=== PATIENT | female | born 1955 | race Caucasian/White ===

== ENCOUNTER 2017-06-18 10:50 | Inpatient (IN) | payer MEDICARE ==
[~2017-06-18] VITALS: Ht 165.1 cm; Wt 89.7 kg
[2017-06-18] VITALS (12 sets, daily range): BP systolic 101–123; BP diastolic 59–76; PULSE 83–90; RESP 9–19; O2SAT 85–97
--- NOTE | 2017-06-18 10:56 | ED.REPORT ---
HPI-General Illness Date of Service Jun 18, 2017 ED Provider: Stanislav Mishra DO Patient is a 61 year old female with a history of diabetes and hypertension who presents to the ED via EMS complaining of right sided weakness. She reports that this is not new weakness. Associated symptoms include a productive- cough with clear sputum. Upon arrival to the ED, the patient's oxygen sats were 85% on room air. Patient denies chest pain, abdominal pain or fever. According to [facility], the patient has been unable to ambulate and appears confused. Nursing Notes Stated Complaint: WEAKNESS/COUGH Chief Complaint: General Complaint Nursing Notes Reviewed: Yes Allergies: Coded Allergies: varenicline (Verified Allergy, Unknown, 06/18/17) acetaminophen (Verified Adverse Reaction, Unknown, 06/18/17) hydrocodone (Verified Adverse Reaction, Unknown, 06/18/17) Uncoded Allergies: PERTUSSIS VACCINE (Allergy, Unknown, 06/18/17) General Time Seen by MD: 10:55 Chief Complaint Weakness Hx Obtained From: Patient Arrived By: Ambulance Onset Occurred: Onset unknown Severity: Current: No pain currently Past Medical History Past Medical History Notes: full code Past Medical History hypothyroid spinal stenosis Reports: Asthma, Diabetes mellitus, Hypertension Past Surgical History back Reports: Cholecystectomy Smoking History Current Every Day Smoker, Heavy Tobacco Smoker Social History Alcohol Use: Denies alcohol use Other Social History: Lives in [facility] Ambulatory Status Cane Review of Systems Full Review of Systems Constitutional: Denies: Fever Respiratory: Reports: Prod cough, clear Cardiovascular: Denies: Chest pain GI: Denies: Abdominal pain Neurologic: Reports: Confusion, Problem walking, Weakness (right side) Complete sys rev & neg: except as marked. Physical Exam Vital Signs Vital Signs Date Time Temp Pulse Resp B/P Pulse Ox O2 Delivery O2 Flow Rate FiO2 06/18/17 13:10 14 96 35 06/18/17 11:13 86 18 101/72 96 Room Air 06/18/17 10:54 36.8 90 9 114/59 85 Initial VS: Reviewed General/Constitutional: Awake, Alert Head / Eyes: Atraumatic, Normocephalic Neck: Atraumatic, Supple, No JVD Respiratory / Chest: Atraumatic, No respiratory distress rales bilaterally hypoxic Cardiovascular: Heart rate NL, Regular rhythm, Heart sounds NL Abdomen: Atraumatic, Soft, Non-tender Skin: Atraumatic, Color NL, No rash, Warm, Dry Neurologic: Speech NL mildly confused Interpretation & Diagnostics Lab Results Interpretation Result Diagram: 06/18/17 1110 06/18/17 1142 Test 06/18/17 11:10 06/18/17 11:39 06/18/17 11:42 White Blood Count 8.8th/mm3 (3.8-10.1) Red Blood Count 4.36mil/mm3 (3.90-5.20) Hemoglobin 13.6g/dL (12.0-15.6) Hematocrit 40.8% (35.0-46.0) Mean Corpuscular Volume 93.6fL (81-100) Mean Corpuscular Hemoglobin 31.2pg (27.0-35.0) Mean Corpuscular Hemoglobin Concent 33.3% (32.0-37.0) Red Cell Distribution Width 12.4% (12.3-15.4) Platelet Count 329bil/L (150-400) Neutrophils (%) (Auto) 61.7% (40-74) Lymphocytes (%) (Auto) 28.6% (14-46) Monocytes (%) (Auto) 7.8% (4-12) Eosinophils (%) (Auto) 1.4% (0-5) Basophils (%) (Auto) 0.3% (0-3) D-Dimer 0.50mg/L FEU (<0.50) Lactic Acid Level 1.0mmol/L (0.4-2.0) Urine Color Straw (YELLOW) Urine Appearance Hazy (CLEAR,HAZY) Urine pH 5.5 (5.0-8.0) Urine Specific [place] 1.015 (1.003-1.035) Urine Protein Negativemg/dL (NEG,TRACE) Urine Glucose (UA) Negativemg/dL (NEGATIVE) Urine Ketones Negativemg/dL (NEGATIVE) Urine Occult Blood Trace (NEGATIVE) Urine Nitrite Positive (NEGATIVE) Urine Bilirubin Negative (NEGATIVE) Urine Urobilinogen Normalmg/dL (NORMAL) Urine Leukocyte Esterase Small (NEGATIVE) Urine RBC 0-2/hpf (0-2) Urine WBC 0-5/hpf (0-5) Urine Epithelial Cells Occasional/hpf (NONE-MOD) Urine Crystals None seen (NONE SEEN) Urine Bacteria Moderate/hpf (NONE-FEW) Urine Hyaline Casts None/lpf (NONE) Urine Granular Casts None seen (NONE SEEN) Urine Waxy Casts None seen (NONE SEEN) Urine Red Blood Cell Casts None seen (NONE SEEN) Urine White Blood Cell Casts None seen (NONE SEEN) Urine Mucus None seen (None Seen) Urine Trichomonas None seen (NONE SEEN) Urine Yeast None (NONE SEEN) Urinalysis Comment None Urine Culture Reflexed Indicated Sodium Level 130mEq/L (134-144) Potassium Level 5.0mEq/L (3.5-5.2) Chloride Level 87mEq/L (97-108) Carbon Dioxide Level 32mmol/L (18-29) Blood Urea Nitrogen 15mg/dL (8-27) Creatinine 0.90mg/dL (0.57-1.00) Estimat Glomerular Filtration Rate 91mL/min (>59) Glucose Level 217mg/dL (60-99) Calcium Level 9.3mg/dL (8.5-10.1) Magnesium Level 1.7mg/dL (1.6-2.6) Total Bilirubin 0.4mg/dL (0.0-1.2) Aspartate Amino Transf (AST/SGOT) 25U/L (0-50) Alanine Aminotransferase (ALT/SGPT) 17U/L (0-32) Alkaline Phosphatase 105U/L (25-165) Troponin T 0.010ug/L (0.0-0.011) Pro-B-Type Natriuretic Peptide 198.9pg/mL (0-287) Total Protein 6.8g/dL (6.4-8.4) Albumin 4.1g/dL (3.4-5.0) Procalcitonin 0.06ng/mL (0.00-0.08) Lab Results Interpretation: BLOOD GAS REPORT: pH 7.290/pCO2 77/pO2 134/cHCO3(P) 35.9/cBASE(B) 6.9 ECG Interpretation ECG Interpretation: nonspecific T abnormalities in lateral leads Time: 11:14 Interpreted by: ED physician Normal ECG Interpretation: Normal rate (85), Normal sinus rhythm X-Ray Chest Interpretation Chest Xray Interpretation: IMPRESSION: Negative chest. No acute cardiopulmonary process is suspected. Dictated by: Tim Estrella M.D. on 06/18/2017 at 11:20 Approved by: Tim Estrella M.D. on 06/18/2017 at 11:21 Re-Eval/Medical Decision Med Decision/Clinical Course Hypercapnic respiratory failure likely due to underlying asthma/suspected COPD. No evidence of infection or cardiac disease. Will be admitted. patient has required BiPAP. Time of Eval: 12:21 Re-Evaluation/Progress Note: Discussed plan for admit. patient understands and agrees to plan. All questions were addressed. Consultation : Referral / Consult Name: Paula Jackson MD Consulted With: Hospitalist Call Returned at: 13:45 Flexboard Operator: Agrees with eval, Agrees with plan, Accepts admit Counseled Regarding: Diagnosis, Lab results, Need for admission Discharge & Departure Primary Impression: Respiratory acidosis Additional Impression: Acute respiratory failure with hypoxia and hypercarbia Disposition: ADMITTED TO HOSPITAL Discharge Condition All VS Reviewed: Yes Condition: Stable Referrals: Ender Webb MD (PCP) Crit Care Except Billable Proc Time Spent: 30-74 minutes (61) Services Performed: Patient management by me, Time spent at bedside, Reviewing test results, Reviewing imaging, Discussing patient care, Documentation in record Scribe Attestation Portions of this note were transcribed by Amber Gibbs. I, Dr. Senait Hughes personally performed the history, physical exam and medical decision-making; I reviewed and confirmed the accuracy of the information in the transcribed note. Signed by: Tg Ball, 06/18/17 copies to: Ender Webb MD, Timothy S DO Jun 18, 2017 10:56 Emma Gibbs Jun 18, 2017 11:38
[2017-06-18 11:27] LABS: BASOPHILS % (AUTO) 0.3 % (0-3); EOSINOPHILS % (AUTO) 1.4 % (0-5); MONOCYTES % (AUTO) 7.8 % (4-12); Mean Corpuscular Hemoglobin 31.2 pg (27.0-35.0); Mean Corpuscular Volume 93.6 fL (81-100); NEUTROPHILS % (AUTO) 61.7 % (40-74); Platelet Count 329 bil/L (150-400)
--- NOTE | 2017-06-18 12:06 | ABG ---
DateTimeAnalyzed 11:57:00 -_ pH ____7.290 - 7.320 7.420 pCO2 ___77.1__ -mmHg 41.0 51.0 pO2 134 -mmHg 26.0 49.0 HCO3- ___35.9__ -mmol/L 22.0 26.0 ABE ____6.9__ -mmol/L -2.0 2.0 tHb ___13.1__ -g/dL 12.0 18.0 O2Hb ___94.9__ -% COHb ____2.8__ -% 1.5 MetHb ____1.0__ -% 0.4 1.5 sO2 ___98.6__ -% 40.0 70.0 FIO2 ___30.0__ -% Drawn By LAB - Date/Time Notified____ 12:06:00 -_ Oxygen Device 1 __CANNULA - Notified By rs - Notified Whom OKELLEY, MAYTE -____ B 762 -mmHg tO2 ___17.7__ -Vol%
--- NOTE | 2017-06-18 12:22 | DRSVH ---
PROCEDURE: X-RAY CHEST ONE VIEW, PORTABLE ([id number]) INDICATIONS: cough, hypoxia TECHNIQUE: One view of the chest was acquired. COMPARISON: None. FINDINGS: Surgical changes and devices: Postoperative changes of the cervical spine are noted. The lowest left -sided pedicle screw is fractured. Lungs and pleura: No pleural effusions or pneumothorax. Lungs are clear. Mediastinum: Mediastinal contours appear normal. Heart size is normal. Bones and chest wall: No suspicious bony lesions. Overlying soft tissues appear unremarkable. IMPRESSION: Negative chest. No acute cardiopulmonary process is suspected. Dictated by: Tim Estrella M.D. on 06/18/2017 at 11:20 Approved by: Tim Estrella M.D. on 06/18/2017 at 11:21
[2017-06-18 12:36] LABS: TROPONIN T 0.01 ug/L (0.0-0.011)
[2017-06-18 12:47] LABS: Magnesium 1.7 mg/dL (1.6-2.6)
[2017-06-18 12:55] LABS: APPEARANCE,URINE HAZY (CLEAR,HAZY); COLOR,URINE STRAW (YELLOW); OCCULT BLOOD,URINE TRACE (NEGATIVE); PH,URINE 5.5 (5.0-8.0)
[2017-06-18 12:56] LABS: UROBILINOGEN,URINE NORMAL (NORMAL)
--- NOTE | 2017-06-18 13:49 | ABG ---
DateTimeAnalyzed 13:40:05 -_ pH ____7.315 - 7.350 7.450 pCO2 ___76.1__ -mmHg 35.0 45.0 pO2 ___81.3__ -mmHg 80.0 100 HCO3- ___38.8__ -mmol/L 22.0 26.0 ABE ___11.0__ -mmol/L -2.0 2.0 tHb ___13.1__ -g/dL 12.0 18.0 O2Hb ___94.1__ -% COHb ____2.8__ -% 1.5 MetHb ____0.0__ -% 0.4 1.5 sO2 ___96.6__ -% 95.0 AaDpO2 ___84.0__ -mmHg FIO2 ___35.0__ -% Drawn By RS - Date/Time Notified____ 13:49:00 -_ Oxygen Device 1 ____BIPAP - Notified By rs - Notified Whom OKELLEY, MAYTE -____ K+ ____4.8__ -mmol/L 3.5 5.0 tO2 ___17.3__ -Vol%
[2017-06-18] MEDS ORDERED: Ondansetron 2 mg/mL 2 mL Inj IVPUSH PRN ×2 (13:50→14:20)
[2017-06-18] MEDS ORDERED: Alum-Mag Hydrox-Simeth 30 mL Suspension PO PRN ×2 (13:50→14:20)
[2017-06-18] MEDS ORDERED: OLP.1OP5 BOTH_EYES (14:15)
[2017-06-18] MEDS ORDERED: INSLIS SUBQ ×4 (14:15)
[2017-06-18] MEDS ORDERED: MULT-666 PO (14:15)
[2017-06-18] MEDS ORDERED: LOPE2CAP PO (14:15)
[2017-06-18] MEDS ORDERED: POTA-62 PO (14:15)
[2017-06-18] MEDS ORDERED: FENT1PAT9 TRANSDERM (14:15)
[2017-06-18] MEDS ORDERED: ACET325T51 PO (14:15)
[2017-06-18] MEDS ORDERED: INSU100V7 SUBQ (14:15)
[2017-06-18] MEDS ORDERED: TAMS0.4C98 PO (14:15)
[2017-06-18] MEDS ORDERED: FEXO180T85 PO (14:15)
[2017-06-18] MEDS ORDERED: OXYC5CAP4 PO (14:15)
[2017-06-18] MEDS ORDERED: FURO80TA83 PO (14:15)
[2017-06-18] MEDS ORDERED: GABA-502 PO (14:15)
[2017-06-18] MEDS ORDERED: OMEG-38 PO (14:15)
[2017-06-18] MEDS ORDERED: ASCO500C6 PO (14:15)
[2017-06-18] MEDS ORDERED: LEVO125T6 PO (14:15)
[2017-06-18] MEDS ORDERED: BISA10SU61 RC (14:15)
[2017-06-18] MEDS ORDERED: FLUO20CA25 PO (14:15)
[2017-06-18] MEDS ORDERED: ALBU8.5H2 INHALATION (14:15)
[2017-06-18] MEDS ORDERED: DOCU-41 PO (14:15)
[2017-06-18] MEDS ORDERED: ACET325C PO (14:15)
[2017-06-18] MEDS ORDERED: NORT25CA PO (14:15)
[2017-06-18] MEDS ORDERED: MAGN400O4 PO (14:15)
[2017-06-18] MEDS ORDERED: DEXT1DRO8 BOTH_EYES (14:15)
[2017-06-18] MEDS ORDERED: ONDA-53 PO (14:15)
[2017-06-18] MEDS ORDERED: BISA-67 PO (14:15)
[2017-06-18] MEDS ORDERED: ATOR10TA66 PO (14:15)
[2017-06-18] MEDS ORDERED: NYST15CR TP (14:15)
[2017-06-18] MEDS ORDERED: SACC250C PO (14:15)
[2017-06-18] MEDS ORDERED: NA P133E23 RC (14:15)
[2017-06-18] MEDS ORDERED: SENN-133 PO (14:15)
[2017-06-18] MEDS ORDERED: [UNRECOGNIZED DRUG - CODE] PO (14:15)
[2017-06-18] MEDS ORDERED: PROM12.510 PO (14:15)
[2017-06-18] MEDS ORDERED: GUAI237L83 PO (14:15)
[2017-06-18] MEDS ORDERED: Polyethylene Glycol (PEG) 17 Gm Powder PO PRN (14:20)
[2017-06-18] MEDS ORDERED: MethylprednisoLONE Sodium Succinate 62.5 mg/mL 2 mL Inj IVPUSH ONE (14:25)
[2017-06-18] MEDS ORDERED: Albuterol 2.5 mg/3 mL Inhalation Solution NEB PRN (14:25)
[2017-06-18] MEDS ORDERED: Glucose 40% Oral Gel 15 Gm Tube PO PRN (14:25)
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
[2017-06-18] MEDS ORDERED: Magnesium Hydroxide 10 mL Oral Concentration PO PRN (14:55)
[2017-06-18] MEDS: 0.9% Sodium Chloride 1,000 ML IV SCH (15:00)
[2017-06-18] MEDS ORDERED: Artificial Tears 15 mL Ophthalmic Solution BOTH_EYES PRN (15:25)
[2017-06-18] MEDS: MethylprednisoLONE Sodium Succinate 40 mg/mL Inj IVPUSH SCH (16:30)
[2017-06-18] MEDS: Albuterol-Ipratropium 3 mL Inhalation Solution NEB SCH ×3 (16:37→23:59)
[2017-06-18] MEDS: Azithromycin Inj 500 MG in Dextrose 5% w/Vial Mate 250 ML IV SCH (17:10)
--- NOTE | 2017-06-18 17:32 | ABG ---
DateTimeAnalyzed 13:40:05 -_ pH ____7.315 - 7.350 7.450 pCO2 ___76.1__ -mmHg 35.0 45.0 pO2 ___81.3__ -mmHg 80.0 100 HCO3- ___38.8__ -mmol/L 22.0 26.0 ABE ___11.0__ -mmol/L -2.0 2.0 tHb ___13.1__ -g/dL 12.0 18.0 O2Hb ___94.1__ -% COHb ____2.8__ -% 1.5 MetHb ____0.0__ -% 0.4 1.5 sO2 ___96.6__ -% 95.0 AaDpO2 ___84.0__ -mmHg FIO2 ___35.0__ -% Drawn By RS - Date/Time Notified____ 13:49:00 -_ Notified By rs - Notified Whom OKELLEY, MAYTE -____ K+ ____4.8__ -mmol/L 3.5 5.0 tO2 ___17.3__ -Vol%
[2017-06-18] MEDS: Insulin LISPRO 300 Unit/3 mL Inj SUBQ SCH ×2 (18:03→21:14)
--- NOTE | 2017-06-18 18:43 | NUR ---
Admission Female patient received from ED to room 2008 at about 1445. Respiratory therapy at bedside applying bipap. Pt slide to bed from [facility] with a 2-3pA. piv sl. ordered IVF started. ordered meds started. pt alert and confused, and refusing to answer questions at times.pt denied pain or discomfort. pt unable to verbalized sob. call light in reach. sitter at bedsides.
[2017-06-18] MEDS: OLOPATADINE BOTH_EYES SCH (20:30)
--- NOTE | 2017-06-18 20:49 | ABG ---
DateTimeAnalyzed 20:47:17 -_ pH ____7.352 - 7.350 7.450 pCO2 ___69.8__ -mmHg 35.0 45.0 pO2 ___63.8__ -mmHg 80.0 100 HCO3- ___38.7__ -mmol/L 22.0 26.0 ABE ___11.5__ -mmol/L -2.0 2.0 tHb ___12.9__ -g/dL 12.0 18.0 O2Hb ___90.9__ -% COHb ____2.7__ -% 1.5 MetHb ____0.0__ -% 0.4 1.5 sO2 ___93.0__ -% 95.0 AaDpO2 __108.2__ -mmHg FIO2 ___35.0__ -% CPAP ___18.0__ -cmH2O PEEP ____8.0__ -cmH2O Set_RR 16 -b/min Drawn By MK - Date/Time Notified____ 20:49:00 -_ Spontaneous_RR 16 -b/min Oxygen Device 1 ____BIPAP - Notified By MK - Notified Whom [place]ger - K+ ____4.6__ -mmol/L 3.5 5.0 Adalberto test _Positive -
--- NOTE | 2017-06-18 23:57 | NUR ---
Past Medical History Past medical history for patient transcribed from report sent by Coral Gonzalez; information documented as available from records. Addendum: 06/18/17 at 2358 by JUN LUCIA RN Amended: Links added.
[2017-06-19] VITALS (10 sets, daily range): BP systolic 112–137; BP diastolic 62–77; PULSE 90–104; RESP 16–18; O2SAT 93–98
[2017-06-19] MEDS: MethylprednisoLONE Sodium Succinate 40 mg/mL Inj IVPUSH SCH ×2 (00:24→08:30)
[2017-06-19] MEDS ORDERED: Haloperidol 5 mg/mL Inj IVPUSH ONE ×3 (01:50→02:45)
[2017-06-19] MEDS ORDERED: Haloperidol 5 mg/mL Inj IM PRN (02:10)
--- NOTE | 2017-06-19 04:17 | NUR ---
Patient was very agitated tonight, needed to be restrained. Bipap removed and placed on a 6L oxymask. Stats remains stable patient is not in any respiratory distress. MD veal
[2017-06-19] MEDS: Albuterol-Ipratropium 3 mL Inhalation Solution NEB SCH ×5 (04:33→20:09)
[2017-06-19] MEDS: 0.9% Sodium Chloride 1,000 ML IV SCH ×3 (04:56→15:04)
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
[2017-06-19] MEDS: Potassium Chloride 20 mEq SR Tablet PO SCH (08:00)
[2017-06-19] MEDS: Omega-3 Fatty Acids 1,000 mg Capsule PO SCH (08:20)
[2017-06-19] MEDS: OLOPATADINE BOTH_EYES SCH ×2 (08:30→21:58)
[2017-06-19] MEDS: guaiFENesin 600 mg ER12 Tablet PO SCH ×2 (08:35→21:53)
[2017-06-19] MEDS ORDERED: Haloperidol 5 mg/mL Inj IVPUSH PRN (09:20)
--- NOTE | 2017-06-19 09:21 | PCM.PNMED ---
Subjective Date of Service Jun 19, 2017 Subjective Patient was agitated overnight. Continues to be to some degree. Really is off of BiPAP and using oxymask. Patient complaining of coughing. Exam Vital Signs Vital Sign - Last Date Time Temp Pulse Resp B/P Pulse Ox O2 Delivery O2 Flow Rate FiO2 06/19/17 07:35 95 18 96 OxyMask 6.00 06/19/17 01:15 37.3 112/62 06/18/17 23:59 35 Intake and Output 06/18/17 06/18/17 06/19/17 Cumulative From/Thru 15:00 23:00 07:00 06/18/17 11:40 - 06/19/17 06:23 Intake Total 0 ml 1346 ml 1346 ml Output Total 100 ml 1473 ml 1573 ml Balance -100 ml 0 ml -127 ml -227 ml Intake Oral 0 ml 0 ml 0 ml IV Total 1346 ml 1346 ml Output Urine Total 100 ml 1473 ml 1573 ml # Voids 1 1 1 3 # Bowel Movements 0 0 Exam Head: Normocephalic atraumatic Chest reveals some scattered rhonchi Cor: Regular rate and rhythm S1-S2 Abdomen: Soft nontender bowel sounds present Extremities: No pedal edema Skin: No rashes Psych: Patient is somewhat agitated in requesting a back to [facility] Neuro: Alert and oriented 3, motor strength is intact bilaterally IVs and Medications Medications Reviewed: Medications were reviewed in detail Lab and Diagnostics Laboratory Tests 72 Hours Test 06/18/17 11:10 06/18/17 11:39 06/18/17 11:42 06/18/17 13:50 White Blood Count 8.8th/mm3 (3.8-10.1) Red Blood Count 4.36mil/mm3 (3.90-5.20) Hemoglobin 13.6g/dL (12.0-15.6) Hematocrit 40.8% (35.0-46.0) Mean Corpuscular Volume 93.6fL (81-100) Mean Corpuscular Hemoglobin 31.2pg (27.0-35.0) Mean Corpuscular Hemoglobin Concent 33.3% (32.0-37.0) Red Cell Distribution Width 12.4% (12.3-15.4) Platelet Count 329bil/L (150-400) Neutrophils (%) (Auto) 61.7% (40-74) Lymphocytes (%) (Auto) 28.6% (14-46) Monocytes (%) (Auto) 7.8% (4-12) Eosinophils (%) (Auto) 1.4% (0-5) Basophils (%) (Auto) 0.3% (0-3) D-Dimer 0.50mg/L FEU (<0.50) Hemoglobin A1c 7.4% (4.8-5.6) Lactic Acid Level 1.0mmol/L (0.4-2.0) Urine Color Straw (YELLOW) Urine Appearance Hazy (CLEAR,HAZY) Urine pH 5.5 (5.0-8.0) Urine Specific [place] 1.015 (1.003-1.035) Urine Protein Negativemg/dL (NEG,TRACE) Urine Glucose (UA) Negativemg/dL (NEGATIVE) Urine Ketones Negativemg/dL (NEGATIVE) Urine Occult Blood Trace (NEGATIVE) Urine Nitrite Positive (NEGATIVE) Urine Bilirubin Negative (NEGATIVE) Urine Urobilinogen Normalmg/dL (NORMAL) Urine Leukocyte Esterase Small (NEGATIVE) Urine RBC 0-2/hpf (0-2) Urine WBC 0-5/hpf (0-5) Urine Epithelial Cells Occasional/hpf (NONE-MOD) Urine Crystals None seen (NONE SEEN) Urine Bacteria Moderate/hpf (NONE-FEW) Urine Hyaline Casts None/lpf (NONE) Urine Granular Casts None seen (NONE SEEN) Urine Waxy Casts None seen (NONE SEEN) Urine Red Blood Cell Casts None seen (NONE SEEN) Urine White Blood Cell Casts None seen (NONE SEEN) Urine Mucus None seen (None Seen) Urine Trichomonas None seen (NONE SEEN) Urine Yeast None (NONE SEEN) Urinalysis Comment None Urine Culture Reflexed Indicated Sodium Level 130mEq/L (134-144) Potassium Level 5.0mEq/L (3.5-5.2) Chloride Level 87mEq/L (97-108) Carbon Dioxide Level 32mmol/L (18-29) Blood Urea Nitrogen 15mg/dL (8-27) Creatinine 0.90mg/dL (0.57-1.00) Estimat Glomerular Filtration Rate 91mL/min (>59) Glucose Level 217mg/dL (60-99) Calcium Level 9.3mg/dL (8.5-10.1) Magnesium Level 1.7mg/dL (1.6-2.6) Total Bilirubin 0.4mg/dL (0.0-1.2) Aspartate Amino Transf (AST/SGOT) 25U/L (0-50) Alanine Aminotransferase (ALT/SGPT) 17U/L (0-32) Alkaline Phosphatase 105U/L (25-165) Troponin T 0.010ug/L (0.0-0.011) < 0.010ug/L (0.0-0.011) Pro-B-Type Natriuretic Peptide 198.9pg/mL (0-287) Total Protein 6.8g/dL (6.4-8.4) Albumin 4.1g/dL (3.4-5.0) Procalcitonin 0.06ng/mL (0.00-0.08) Test 06/18/17 20:23 06/19/17 04:28 Troponin T < 0.010ug/L (0.0-0.011) Albumin 3.9g/dL (3.4-5.0) Prealbumin 17mg/dL (20-40) Sodium Level 133mEq/L (134-144) Potassium Level 4.9mEq/L (3.5-5.2) Chloride Level 90mEq/L (97-108) Carbon Dioxide Level 33mmol/L (18-29) Blood Urea Nitrogen 18mg/dL (8-27) Creatinine 0.88mg/dL (0.57-1.00) Estimat Glomerular Filtration Rate 94mL/min (>59) Glucose Level 332mg/dL (60-99) Calcium Level 9.6mg/dL (8.5-10.1) Result Diagram: 06/18/17 1110 06/19/17 0428 Microbiology Sputum PCR is negative X-Rays, CTs and MRIs PROCEDURE: X-RAY CHEST ONE VIEW, PORTABLE ([id number]) INDICATIONS: cough, hypoxia TECHNIQUE: One view of the chest was acquired. COMPARISON: None. FINDINGS: Surgical changes and devices: Postoperative changes of the cervical spine are noted. The lowest left-sided pedicle screw is fractured. Lungs and pleura: No pleural effusions or pneumothorax. Lungs are clear. Mediastinum: Mediastinal contours appear normal. Heart size is normal. Bones and chest wall: No suspicious bony lesions. Overlying soft tissues appear unremarkable. IMPRESSION: Negative chest. No acute cardiopulmonary process is suspected. Dictated by: Tim Estrella M.D. on 06/18/2017 at 11:20 Approved by: Tim Estrella M.D. on 06/18/2017 at 11:21 12-lead ECG Sinus at a rate of 85 QTC of 443 no acute abnormalities noted Assessment & Plan # Acute on chronic respiratory failure with hypoxia and hypercapnia, present on admission -Chest x-ray is negative and as not had fever chills or elevated pro calcitonin so suspect his COPD exacerbation -She has significant respiratory acidosis so will place on BiPAP and monitor ABGs -Check serial troponins and d-dimer was negative -Is quite dyspneic so we will go ahead and put her on IV Solu-Medrol, duo nebs every 4 hours and albuterol nebs every 2 hours when necessary -We will also cover her for acute exacerbation of chronic bronchitis with IV azithromycin was switched to by mouth when able to take by mouth safely -Respiratory PCR is negative and sputum studies pending # Hyponatremia, acute, present on admission -Suspect may be due to poor by mouth intake and continuing Lasix therapy -Give IV normal saline and recheck labs which have improved the morning of June 19 # Agitation, acute, present on admission -We will go ahead and give IV Haldol and/or IV Ativan when necessary -We will need to get records from [facility] regarding her baseline. # Hypothyroidism, chronic, present on admission -Continue with her thyroid dosing # DVT prophylaxis -Placed on subcutaneous prophylactic Lovenox and use SCDs # CODE STATUS -Patient has arrived with a POLST form and reveals okay for CPR but DO NOT INTUBATE and limited interventions are okay including BiPAP VTE Prophylaxis: Sub-Q Enoxaparin, SCDs VTE Mechanical Devices: Intermittant Pneumatic CD Resuscitation Status: Limited Interventions Time spent 25 minutes. Paula Jackson MD Jun 19, 2017 09:21
[2017-06-19] MEDS: Insulin GLARgine 100 Unit/mL Syringe SUBQ SCH ×2 (10:10→22:01)
[2017-06-19] MEDS: Insulin LISPRO 300 Unit/3 mL Inj SUBQ SCH ×4 (10:11→22:02)
[2017-06-19] MEDS: predniSONE 20 mg Tablet PO SCH (11:00)
--- NOTE | 2017-06-19 11:06 | NUR ---
CARE HOME TRANSFER : Gave access to [facility] and faxed facesheet per STUDENT LIFE VICE PRESIDENT and MD orders
--- NOTE | 2017-06-19 12:40 | NUR ---
Inpatient Wound Nurse Patient seen for PIP due to low Johnathan score. Heels warm and pink, no bogginess. Elbows warm and pink, no excoriation or bruising. Patient's primary RN reported to pressure injury to sacrum. Midline panniculus noted with two sheering wounds, approximately 2.5 cm L x 2 cm W and no measurable depth. Bright red wound beds, minimal bleeding. Entire panniculus very sweaty and hot but no signs of fungus; CWON RN thoroughly cleansed and dried this space, then applied Mepilex sheet foam under entire fold. Nursing staff may change PRN. CWON will see patient end of week.
[2017-06-19] MEDS: Azithromycin Inj 500 MG in Dextrose 5% w/Vial Mate 250 ML IV SCH (15:04)
--- NOTE | 2017-06-19 16:59 | NUR ---
Social Work: Initial Assessment/Multidisciplinary Rounds D: Per EMR review, patient is a 61 year old female admitted for Hypercarbic respiratory failure. Patient is [facility] with Medicare; patient has no LTC or VA benefits. PCP is Kenny Webb MD. NOK is Angela Flores, dtr, . Advanced directives not on file- POLST completed. Readmit score is high, 5/8. Pt discussed in multidisciplinary rounds; the patient is not medically stable for discharge and is not oriented to for assessment at this time. Overnight, patient became combative, disoriented and required a sitter and restraints. Patient comes from [facility] where she is LTC resident. Her PLOF and baseline mentation is undermined. ROUNDSMAN attempted to contact patient's daughter to attempt assessment. No answer. ROUNDSMAN spoke with wire charger, Kim, at [facility]. She states that at baseline the patient is fully oriented and decisional. She uses a powerchair at baseline but is able to transfer with the use of a FWW. Personality painting, the patient has a somewhat flat affect and "rough around the edges" at baseline but compliant. Patient has been working very hard to get her strength and mobility to a point where she can tolerate a flight/move back to [place] where the rest of her family is. The patient was supposed to move at the beginning of May but this was pushed back due to a recent optometry surgery. The patient has been very discouraged since then. ROUNDSMAN confirmed with Sabrina Carpenter, provider relations coordinator, that they are able to accept the patient back once she is medically stable. Dr. Webb will follow. A: Pt who is bound to her powerchair with limited baseline mobility, P: Evolving; Anticipate patient to return to [facility] and ultimately move to [place] once she is able to tolerate travel. ROUNDSMAN to continue to follow to assess for unmet discharge needs. VERONIQUE Gould Addendum: 06/19/17 at 1709 by PAMELA MUNOZ SS Amended: Links added.
--- NOTE | 2017-06-19 18:13 | NUR ---
Agitation, Family 0733 - Her daughter Brandi called from [place] and was given an update. She requested to be called by the MD after morning rounds to talk to them. Told her this request would be passed on. 931 - [facility] called to say that the sputum sample they had received was contaminated and that a new one needed to be obtained. 939 - Discussed her care with Dr. Jackson, Dr. Mcclelland, and the rest of the multidisciplinary care team during morning rounds. The stated plan was to not give her any more IV steroids as she had seemed to have a negative reaction to this during the night by becoming very agitated and confused. Informed them that due to her mental state staff had not been able to give her any oral medications. Notified Dr. Jackson that the dtr wanted an update from the MD. Also, informed them that her blood glucose this morning had been 364. During the night she had been retaining urine and would likely need a Granado catheter today. All this information was acknowledged. About 1000 - Went to assess her and give her the AM medication. Bladder scan revealed about 874 mls in her bladder. Placed a Granado catheter about 1050 and immediately got 1250 return of urine. Gave her 1 mg of IV Ativan which seemed to calm her down. She became rather pleasant and compliant afterwards. Notified Dr. Jackson. About 1400 - Spoke to Dr. Jackson and asked if her Ativan could be given every 2 hours instead of every 4 hours. She said yes and changed the order. 1734 - Barndi, her daughter, called again and was given another update. She said that she had also spoken to Dr. Jackson. 1812 - Paged Dr. Jackson who called right back. Notified her that the patient had remained confused and agitated throughout the day. She refused, despite a couple of tries by this nurse, to take her oral Prednisone and other oral medications. Dr. Jackson acknowledged this information. She has been in 4-point soft wrist and ankle restraints all day as she will pull at her lines or try to grab onto or kick staff. She has had a sitter in her room all day who has attempted several times to turn her, but she strongly refuses each time. She has been moved around by staff a couple of times when repositioning her restraints and changing her brief. Giving her 1 mg of IV Ativan about every 2 hours which helps to calm her down to some degree. Care continues.
[2017-06-19] MEDS ORDERED: guaiFENesin 600 mg ER12 Tablet PO SCH (20:30)
[2017-06-20] VITALS (14 sets, daily range): BP systolic 113–142; BP diastolic 61–84; PULSE 79–97; RESP 11–19; O2SAT 93–99
[2017-06-20] MEDS: Albuterol-Ipratropium 3 mL Inhalation Solution NEB SCH ×4 (01:09→22:30)
[2017-06-20] MEDS: 0.9% Sodium Chloride 1,000 ML IV SCH ×2 (02:37→22:12)
--- NOTE | 2017-06-20 04:11 | NUR ---
Mentation Pt very drowsy but will open eyes when name is called, unable to hold attention for very long. Pt could not tell nursing when her birthday was, where she was or what the month was. Pt able to follow some commands and swallow apple sauce with HS medications. Pt has been calm and cooperative and 4 point restraints removed, sitter still at bedside. VSS and Tele SR
[2017-06-20] MEDS ORDERED: cefTRIAXone Inj 2,000 MG in Dextrose 5% Minibag Plus 50 ML IV SCH (07:05)
[2017-06-20 08:41] LABS: BASOPHILS % (AUTO) 0.2 % (0-3); EOSINOPHILS % (AUTO) 0.4 % (0-5); MONOCYTES % (AUTO) 6.2 % (4-12); NEUTROPHILS % (AUTO) 57.3 % (40-74); Platelet Count 307 bil/L (150-400)
--- NOTE | 2017-06-20 10:50 | NUR ---
Mentation/Medications Pt very drowsy, slurring words, unable to give birthdate, unable to answer questions. Holding medications at this time. notified. Care continues. Addendum: 06/20/17 at 1228 by NEREYDA KIM RN Pt woke at approximately 1205. Pt AO to self. Slow to respond. Bilateral legal recruiter weak. Able to follow commands with delay. Pt states she is able to take medications with water. MD notified of patient awake status. Care continues. Spoke with daughter on phone, pt states she is too sleepy to talk at this time.
--- NOTE | 2017-06-20 11:35 | NUR ---
TODD: Patient is confused and unable to sign at this time, patient currently has sitter in place. 360IM
[2017-06-20] MEDS: Insulin LISPRO 300 Unit/3 mL Inj SUBQ SCH ×4 (12:00→22:03)
[2017-06-20] MEDS: Potassium Chloride 20 mEq SR Tablet PO SCH (12:38)
[2017-06-20] MEDS: predniSONE 20 mg Tablet PO SCH (12:40)
[2017-06-20] MEDS: Insulin GLARgine 100 Unit/mL Syringe SUBQ SCH ×2 (12:59→22:03)
[2017-06-20] MEDS: guaiFENesin 600 mg ER12 Tablet PO SCH ×2 (13:01→22:02)
[2017-06-20] MEDS: Omega-3 Fatty Acids 1,000 mg Capsule PO SCH (13:02)
--- NOTE | 2017-06-20 14:59 | NUR ---
Inpatient Wound Nurse Patient seen for assessment of panniculus wounds. Wounds to center panniculus are unchanged despite two days of Mepilex sheet foam. Wound beds beefy red, no periwound erythema, no drainage, but wounds appear as though they are fragile and would bleed easily as they are part of striae pattern. Panniculus much shelf drier operator today, continues with no signs of yeast. Wounds were cleansed, blotted dry, then covered with Xeroform and bordered Mepilex foam dressing. Remainder of panniculus was filled with Mepilex sheet foam to transfer off moisture. Nursing staff may change PRN.
--- NOTE | 2017-06-20 16:15 | PCM.PNMED ---
Subjective Date of Service Jun 20, 2017 Subjective Patient is somnolent this morning. She does arouse and is able to give me her name and place but not date. Exam Vital Signs Vital Sign - Last Date Time Temp Pulse Resp B/P Pulse Ox O2 Delivery O2 Flow Rate FiO2 06/20/17 13:47 36.7 83 18 133/77 93 Room Air 06/20/17 09:30 3.00 06/18/17 23:59 35 Intake and Output 06/19/17 06/19/17 06/20/17 Cumulative From/Thru 15:00 23:00 07:00 06/18/17 11:40 - 06/20/17 06:15 Intake Total 2272 ml 1393 ml 5011 ml Output Total 1800 ml 600 ml 3973 ml Balance 472 ml 793 ml 1038 ml Intake Oral 1200 ml 50 ml 1250 ml IV Total 1072 ml 1343 ml 3761 ml Output Urine Total 1800 ml 600 ml 3973 ml # Voids 0 3 # Bowel Movements 0 Exam Constitutional: 61-year-old female who is fairly somnolent but does arouse and answer questions Head: Normocephalic atraumatic Chest: Scattered expiratory wheezes and rhonchi Cor: Regular rate and rhythm S1-S2 without murmur Abdomen: Soft nontender bowel sounds present Extremities: Trace bilateral pedal edema Psych: Flat affect Neuro: She is drowsy but arousable and oriented 2, motor strength is intact bilaterally Lab and Diagnostics Laboratory Tests 72 Hours Test 06/18/17 11:10 06/18/17 11:39 06/18/17 11:42 06/18/17 13:50 White Blood Count 8.8th/mm3 (3.8-10.1) Red Blood Count 4.36mil/mm3 (3.90-5.20) Hemoglobin 13.6g/dL (12.0-15.6) Hematocrit 40.8% (35.0-46.0) Mean Corpuscular Volume 93.6fL (81-100) Mean Corpuscular Hemoglobin 31.2pg (27.0-35.0) Mean Corpuscular Hemoglobin Concent 33.3% (32.0-37.0) Red Cell Distribution Width 12.4% (12.3-15.4) Platelet Count 329bil/L (150-400) Neutrophils (%) (Auto) 61.7% (40-74) Lymphocytes (%) (Auto) 28.6% (14-46) Monocytes (%) (Auto) 7.8% (4-12) Eosinophils (%) (Auto) 1.4% (0-5) Basophils (%) (Auto) 0.3% (0-3) D-Dimer 0.50mg/L FEU (<0.50) Hemoglobin A1c 7.4% (4.8-5.6) Lactic Acid Level 1.0mmol/L (0.4-2.0) Urine Color Straw (YELLOW) Urine Appearance Hazy (CLEAR,HAZY) Urine pH 5.5 (5.0-8.0) Urine Specific [place] 1.015 (1.003-1.035) Urine Protein Negativemg/dL (NEG,TRACE) Urine Glucose (UA) Negativemg/dL (NEGATIVE) Urine Ketones Negativemg/dL (NEGATIVE) Urine Occult Blood Trace (NEGATIVE) Urine Nitrite Positive (NEGATIVE) Urine Bilirubin Negative (NEGATIVE) Urine Urobilinogen Normalmg/dL (NORMAL) Urine Leukocyte Esterase Small (NEGATIVE) Urine RBC 0-2/hpf (0-2) Urine WBC 0-5/hpf (0-5) Urine Epithelial Cells Occasional/hpf (NONE-MOD) Urine Crystals None seen (NONE SEEN) Urine Bacteria Moderate/hpf (NONE-FEW) Urine Hyaline Casts None/lpf (NONE) Urine Granular Casts None seen (NONE SEEN) Urine Waxy Casts None seen (NONE SEEN) Urine Red Blood Cell Casts None seen (NONE SEEN) Urine White Blood Cell Casts None seen (NONE SEEN) Urine Mucus None seen (None Seen) Urine Trichomonas None seen (NONE SEEN) Urine Yeast None (NONE SEEN) Urinalysis Comment None Urine Culture Reflexed Indicated Sodium Level 130mEq/L (134-144) Potassium Level 5.0mEq/L (3.5-5.2) Chloride Level 87mEq/L (97-108) Carbon Dioxide Level 32mmol/L (18-29) Blood Urea Nitrogen 15mg/dL (8-27) Creatinine 0.90mg/dL (0.57-1.00) Estimat Glomerular Filtration Rate 91mL/min (>59) Glucose Level 217mg/dL (60-99) Calcium Level 9.3mg/dL (8.5-10.1) Magnesium Level 1.7mg/dL (1.6-2.6) Total Bilirubin 0.4mg/dL (0.0-1.2) Aspartate Amino Transf (AST/SGOT) 25U/L (0-50) Alanine Aminotransferase (ALT/SGPT) 17U/L (0-32) Alkaline Phosphatase 105U/L (25-165) Troponin T 0.010ug/L (0.0-0.011) < 0.010ug/L (0.0-0.011) Pro-B-Type Natriuretic Peptide 198.9pg/mL (0-287) Total Protein 6.8g/dL (6.4-8.4) Albumin 4.1g/dL (3.4-5.0) Procalcitonin 0.06ng/mL (0.00-0.08) Test 06/18/17 20:23 06/19/17 04:28 06/20/17 08:30 Troponin T < 0.010ug/L (0.0-0.011) Albumin 3.9g/dL (3.4-5.0) 3.7g/dL (3.4-5.0) Prealbumin 17mg/dL (20-40) Sodium Level 133mEq/L (134-144) 137mEq/L (134-144) Potassium Level 4.9mEq/L (3.5-5.2) 3.6mEq/L (3.5-5.2) Chloride Level 90mEq/L (97-108) 97mEq/L (97-108) Carbon Dioxide Level 33mmol/L (18-29) 33mmol/L (18-29) Blood Urea Nitrogen 18mg/dL (8-27) 16mg/dL (8-27) Creatinine 0.88mg/dL (0.57-1.00) 0.67mg/dL (0.57-1.00) Estimat Glomerular Filtration Rate 94mL/min (>59) 128mL/min (>59) Glucose Level 332mg/dL (60-99) 125mg/dL (60-99) Calcium Level 9.6mg/dL (8.5-10.1) 8.7mg/dL (8.5-10.1) White Blood Count 11.0th/mm3 (3.8-10.1) Red Blood Count 3.61mil/mm3 (3.90-5.20) Hemoglobin 11.2g/dL (12.0-15.6) Hematocrit 33.2% (35.0-46.0) Mean Corpuscular Volume 92.0fL (81-100) Mean Corpuscular Hemoglobin 31.0pg (27.0-35.0) Mean Corpuscular Hemoglobin Concent 33.7% (32.0-37.0) Red Cell Distribution Width 12.5% (12.3-15.4) Platelet Count 307bil/L (150-400) Neutrophils (%) (Auto) 57.3% (40-74) Lymphocytes (%) (Auto) 35.8% (14-46) Monocytes (%) (Auto) 6.2% (4-12) Eosinophils (%) (Auto) 0.4% (0-5) Basophils (%) (Auto) 0.2% (0-3) Total Bilirubin 0.3mg/dL (0.0-1.2) Aspartate Amino Transf (AST/SGOT) 21U/L (0-50) Alanine Aminotransferase (ALT/SGPT) 12U/L (0-32) Alkaline Phosphatase 76U/L (25-165) Total Protein 5.9g/dL (6.4-8.4) Result Diagram: 06/20/1730 06/20/1730 Microbiology Sputum PCR is negative X-Rays, CTs and MRIs PROCEDURE: X-RAY CHEST ONE VIEW, PORTABLE ([id number]) INDICATIONS: cough, hypoxia TECHNIQUE: One view of the chest was acquired. COMPARISON: None. FINDINGS: Surgical changes and devices: Postoperative changes of the cervical spine are noted. The lowest left-sided pedicle screw is fractured. Lungs and pleura: No pleural effusions or pneumothorax. Lungs are clear. Mediastinum: Mediastinal contours appear normal. Heart size is normal. Bones and chest wall: No suspicious bony lesions. Overlying soft tissues appear unremarkable. IMPRESSION: Negative chest. No acute cardiopulmonary process is suspected. Dictated by: Tim Estrella M.D. on 06/18/2017 at 11:20 Approved by: Tim Estrella M.D. on 06/18/2017 at 11:21 12-lead ECG Sinus at a rate of 85 QTC of 443 no acute abnormalities noted Assessment & Plan # Acute on chronic respiratory failure with hypoxia and hypercapnia, present on admission -Chest x-ray is negative and as not had fever chills or elevated pro calcitonin so suspect his COPD exacerbation -ABG repeated this morning does not show respiratory metabolic acidosis -Patient was switched to IV Rocephin for possible urinary tract infection -Patient appears to have had increased anxiety and agitation secondary to steroids which were started when she was in the emergency room. -Continue with DuoNeb's every 6 hours and albuterol when necessary # Hyponatremia, acute, present on admission, resolving -Suspect may be due to poor by mouth intake and continuing Lasix therapy -Give IV normal saline and recheck labs which have improved the morning of June 19 # Agitation, acute, present on admission -Patient subsequently has been given IV Ativan on IV Haldol and now is fairly drowsy so we will stop her medications so patient's mental status clear -We will also DC steroids as I think this was a contributing factor # Urinary tract infection, acute, present on admission -Cultures show greater than 10 the fifth gram-negative rods so have switched to IV Rocephin as the antibiotic # Hypothyroidism, chronic, present on admission -Continue with her thyroid dosing # DVT prophylaxis -Placed on subcutaneous prophylactic Lovenox and use SCDs # CODE STATUS -Patient has arrived with a POLST form and reveals okay for CPR but DO NOT INTUBATE and limited interventions are okay including BiPAP VTE Prophylaxis: Sub-Q Enoxaparin, SCDs VTE Mechanical Devices: Intermittant Pneumatic CD Resuscitation Status: Limited Interventions Time spent 25 minutes Paula Jackson MD Jun 20, 2017 16:15
--- NOTE | 2017-06-20 18:05 | NUR ---
CT Scan Pt off floor for CT Scan at approximately 1805, dinner tray outside of room, Blood Sugar check once back to floor. technical maintenance specialist notified. Care continues.
--- NOTE | 2017-06-20 18:40 | DRSVH ---
PROCEDURE: CT BRAIN WITH AND WITHOUT CONTRAST ([id number]) INDICATIONS: 61 year-old female with acute encephalopathy. TECHNIQUE: 4.5 mm thick angled axial sections acquired from the foramen magnum to the vertex before and after th e administration of intravenous contrast, with coronal reformats. COMPARISON: , CT, CT BRAIN WO CON, 04/18/2016, 13:44. FINDINGS: Image quality: Excellent. CSF Spaces: Basal cisterns are patent. No extra-axial fluid collections. Ventricles are normal in size and shape. Brain: No midline shift. No intracranial bleeds or masses. No abnormal intracranial enhancement. Rodriguez-white interface appears normal. Skull and face: Calvarium and visualized facial bones appear intact, without suspicious lesions. Sinuses: Visualized sinuses and mastoids are clear. IMPRESSION: No acute intracranial abnormalities. Dictated by: Femi Wang M.D. on 06/20/2017 at 18:35 Approved by: Femi Wang M.D. on 06/20/2017 at 18:38
[2017-06-20] MEDS: Piperacillin-Tazo 3.375 Gm Inj 3.375 GM in Dextrose 5% Minibag Plus 50 ML IV SCH (18:50)
--- NOTE | 2017-06-20 19:02 | DRSVH ---
PROCEDURE: X-RAY CHEST ONE VIEW, PORTABLE ([id number]) INDICATIONS: 61 year-old female with cough. TECHNIQUE: One view of the chest was acquired. COMPARISON: [facility], CR, XR CHEST 1VW (PORTABLE), 06/18/2017, 12:14. FINDINGS: Surgical changes and devices: Bilateral posterior cervical spine fixation hardware is again noted, wi th both inferior most screws broken. Lungs and pleura: No pleural effusions or pneumothorax. Lungs are clear. Mediastinum: Mediastinal contours appear normal. Heart size is normal. Bones and chest wall: No suspicious bony lesions. Overlying soft tissues appear unremarkable. IMPRESSION: No acute cardiopulmonary disease. Dictated by: Femi Wang M.D. on 06/20/2017 at 18:59 Approved by: Femi Wang M.D. on 06/20/2017 at 19:00
[2017-06-20] MEDS: OLOPATADINE BOTH_EYES SCH ×2 (21:58→21:59)
[2017-06-21] VITALS (11 sets, daily range): BP systolic 116–136; BP diastolic 65–84; PULSE 72–83; RESP 16–18; O2SAT 94–97
[2017-06-21] MEDS: Piperacillin-Tazo 3.375 Gm Inj 3.375 GM in Dextrose 5% Minibag Plus 50 ML IV SCH ×2 (01:07→10:14)
[2017-06-21] MEDS: 0.9% Sodium Chloride 1,000 ML IV SCH ×3 (02:16→22:07)
[2017-06-21] MEDS: Albuterol-Ipratropium 3 mL Inhalation Solution NEB SCH ×4 (02:37→20:36)
[2017-06-21 03:15] LABS: BASOPHILS % (AUTO) 0.1 % (0-3); EOSINOPHILS % (AUTO) 0.1 % (0-5); MONOCYTES % (AUTO) 5.1 % (4-12); Mean Corpuscular Hemoglobin 30.4 pg (27.0-35.0); Mean Corpuscular Volume 91.4 fL (81-100); NEUTROPHILS % (AUTO) 74.6 % (40-74); Platelet Count 317 bil/L (150-400)
[2017-06-21 03:40] LABS: Magnesium 1.7 mg/dL (1.6-2.6); Phosphorus 2.7 mg/dL (2.5-4.9)
--- NOTE | 2017-06-21 03:54 | NUR ---
Activity/BSC/Mentation-Neuro Pt received a sponge bath in a chair. 2 person max assist to get the patient to the chair. Pt was able to assist with standing and transferring briefly. Pt subsequently assisted up to the BSC. Pt was not able to help at this time. 3 Person to get the patient back to bed safety. Personal alarm on.
[2017-06-21] MEDS: Insulin LISPRO 300 Unit/3 mL Inj SUBQ SCH ×4 (08:00→22:00)
[2017-06-21] MEDS: OLOPATADINE BOTH_EYES SCH ×2 (08:30→22:05)
[2017-06-21] MEDS: Potassium Chloride 20 mEq SR Tablet PO SCH (10:11)
[2017-06-21] MEDS: Omega-3 Fatty Acids 1,000 mg Capsule PO SCH (10:12)
[2017-06-21] MEDS: guaiFENesin 600 mg ER12 Tablet PO SCH ×2 (10:13→22:04)
[2017-06-21] MEDS: Insulin GLARgine 100 Unit/mL Syringe SUBQ SCH ×2 (10:19→22:07)
--- NOTE | 2017-06-21 11:22 | NUR ---
NUTRITION ASSESSMENT: ASSESS: Pt is a 61yo F admitted for UTI and chronic respiratory failure. She has been experiencing some AMS but today she is more alert and orients. PO has been variable, likely due to pts mentation. She is on a heart healthy diet with PO ranging from 0-75%. Pt has not had a BM since admit. PMHX: spinal stenosis, DM, HTN, asthma, hypothyroid LABS: Reviewed. Cl 95, CO2 30, Glu 215, Alb 3.7 MEDS: Reviewed. MVI, senna, dulcolax GI: 0 BM SKIN: WC following form PI on sacrum and wounds on panniculus CURRENT WTS: 89.7kg, BMI 32.9kg/m2, admit wt: 88.7kg, IBW: 56.8kg DIET: HH, PO 0-75% EST. NEEDS: BMI, wounds Kcals: 1975-2245kcal/day (22-25kcal/kg) Pro: 85-100g/day (1.5-1.8g/IBW) NUTRITION DIAGNOSIS: 1.) Increased kcal/pro needs related to wounds as evidence by PI on sacrum and wounds on panniculus NUTRITION INTERVENTION: 1.) Continue current diet. Will add Glucerna on L tray MONITOR / EVAL: PO, wt, wounds, BM, labs, POC, nutrition status. Will continue to monitor per moderate nutrition risk guidelines
[2017-06-21] MEDS: cefTRIAXone Inj 2,000 MG in Dextrose 5% Minibag Plus 50 ML IV SCH (15:03)
--- NOTE | 2017-06-21 15:30 | PCM.PNMED ---
Subjective Date of Service Jun 21, 2017 Subjective Patient is more alert today and responding to questions appropriately. Exam Vital Signs Vital Sign - Last Date Time Temp Pulse Resp B/P Pulse Ox O2 Delivery O2 Flow Rate FiO2 06/21/17 12:27 36.6 72 16 129/77 96 Nasal Cannula 2.00 06/18/17 23:59 35 Intake and Output 06/20/17 06/20/17 06/21/17 Cumulative From/Thru 15:00 23:00 07:00 06/18/17 11:40 - 06/21/17 05:49 Intake Total 2098 ml 1175 ml 8284 ml Output Total 1000 ml 1600 ml 6573 ml Balance 1098 ml -425 ml 1711 ml Intake Oral 760 ml 100 ml 2110 ml IV Total 1338 ml 1075 ml 6174 ml Output Urine Total 1000 ml 1600 ml 6573 ml # Voids 3 # Bowel Movements 0 Exam Constitutional: 61-year-old female who appears in no acute distress Head: Normocephalic atraumatic Chest: Scant crackles at her bases otherwise no significant wheezing and fairly good air movement Cor: Regular rate and rhythm S1-S2 without murmur Abdomen: Soft nontender bowel sounds present Extremities: Trace bilateral pedal edema Skin: No rashes Psych: Mood and affect appear appropriate Neuro: Alert and oriented 3, motor strength is intact bilaterally IVs and Medications Medications Reviewed: Medications were reviewed in detail Lab and Diagnostics Result Diagram: 06/21/1725406/21/17254 Microbiology Sputum PCR is negative X-Rays, CTs and MRIs PROCEDURE: X-RAY CHEST ONE VIEW, PORTABLE ([id number]) INDICATIONS: cough, hypoxia TECHNIQUE: One view of the chest was acquired. COMPARISON: None. FINDINGS: Surgical changes and devices: Postoperative changes of the cervical spine are noted. The lowest left-sided pedicle screw is fractured. Lungs and pleura: No pleural effusions or pneumothorax. Lungs are clear. Mediastinum: Mediastinal contours appear normal. Heart size is normal. Bones and chest wall: No suspicious bony lesions. Overlying soft tissues appear unremarkable. IMPRESSION: Negative chest. No acute cardiopulmonary process is suspected. Dictated by: Tim Estrella M.D. on 06/18/2017 at 11:20 Approved by: Tim Estrella M.D. on 06/18/2017 at 11:21 PROCEDURE: CT BRAIN WITH AND WITHOUT CONTRAST ([id number]) INDICATIONS: 61 year-old female with acute encephalopathy. TECHNIQUE: 4.5 mm thick angled axial sections acquired from the foramen magnum to the vertex before and after the administration of intravenous contrast, with coronal reformats. COMPARISON: [facility], CT, CT BRAIN WO CON, 04/18/2016, 13:44. FINDINGS: Image quality: Excellent. CSF Spaces: Basal cisterns are patent. No extra-axial fluid collections. Ventricles are normal in size and shape. Brain: No midline shift. No intracranial bleeds or masses. No abnormal intracranial enhancement. Rodriguez-white interface appears normal. Skull and face: Calvarium and visualized facial bones appear intact, without suspicious lesions. Sinuses: Visualized sinuses and mastoids are clear. IMPRESSION: No acute intracranial abnormalities. Dictated by: Femi Wang M.D. on 06/20/2017 at 18:35 Approved by: Femi Wang M.D. on 06/20/2017 at 18:38 12-lead ECG Sinus at a rate of 85 QTC of 443 no acute abnormalities noted Assessment & Plan # Acute on chronic respiratory failure with hypoxia and hypercapnia, present on admission -Chest x-ray is negative and as not had fever chills or elevated pro calcitonin so suspect his COPD exacerbation -ABG repeated this morning does not show respiratory metabolic acidosis -Patient was switched to IV Rocephin for possible urinary tract infection -Patient appears to have had increased anxiety and agitation secondary to steroids which were started when she was in the emergency room. -Patient's mental status has improved today June 21 after no steroids -Continue with DuoNeb's every 6 hours and albuterol when necessary # Hyponatremia, acute, present on admission, resolving -Suspect may be due to poor by mouth intake and continuing Lasix therapy -Give IV normal saline and recheck labs which have improved the morning of June 19 -We will stop IV fluids as is taking po # Toxic encephalopathy with resultant agitation, acute, present on admission -Patient subsequently has been given IV Ativan on IV Haldol and now is fairly drowsy so we will stop her medications so patient's mental status clear -We will also DC steroids on June 20 as I think this was a contributing factor and is markedly improved June 12 # Urinary tract infection, acute, present on admission -Cultures show greater than 10 the fifth of E coli which is pansensitive so patient is on IV Rocephin # Hypothyroidism, chronic, present on admission -Continue with her thyroid dosing # DVT prophylaxis -Placed on subcutaneous prophylactic Lovenox and use SCDs # CODE STATUS -Patient has arrived with a POLST form and reveals okay for CPR but DO NOT INTUBATE and limited interventions are okay including BiPAP VTE Prophylaxis: Sub-Q Enoxaparin, SCDs VTE Mechanical Devices: Intermittant Pneumatic CD Resuscitation Status: Limited Interventions Time spent 20 minutes Paula Jackson MD Jun 21, 2017 15:30
--- NOTE | 2017-06-21 17:44 | NUR ---
Mentation/GI/ Pt is alert and oriented x3. Was oriented to place and situation and did remember a conversation she had with the doctor yesterday. She is forgetful at times. Granado cath was d/c'd at 1430. Pt voided spontaneously in the commode several hours later, without any difficulty (voided 700cc). She was given bowel meds this AM and did have a small, loose BM in the evening.
[2017-06-22] VITALS (9 sets, daily range): BP systolic 113–136; BP diastolic 66–74; PULSE 70–84; RESP 16; O2SAT 93–97
[2017-06-22] MEDS: Albuterol-Ipratropium 3 mL Inhalation Solution NEB SCH ×3 (05:24→16:52)
--- NOTE | 2017-06-22 07:36 | NUR ---
Respiratory / Glucose / GI / mentation Pt denies SOB. Tolerating activities well. SPO2 mid-high 90s on 2 L NC. BG at HS = 166. Lantus given. Approx. at 0200 pt was clammy. BG checked = 52. Pt is alert. Snacks given. BG appropriate = 107. No further hypoglycemia noted. Pt is alert and oriented. No confusion or inappropriate behavior noted. She is able to make her needs known. Pt had loose stools multiple times. She stated I dont want stool softener anymore. Day RN aware. No overt complications noted.
[2017-06-22] MEDS: Insulin LISPRO 300 Unit/3 mL Inj SUBQ SCH ×4 (08:00→21:09)
[2017-06-22] MEDS: 0.9% Sodium Chloride 1,000 ML IV SCH (08:16)
[2017-06-22] MEDS: OLOPATADINE BOTH_EYES SCH ×2 (08:23→19:35)
[2017-06-22] MEDS: Omega-3 Fatty Acids 1,000 mg Capsule PO SCH (09:53)
[2017-06-22] MEDS: guaiFENesin 600 mg ER12 Tablet PO SCH ×2 (09:53→19:34)
[2017-06-22] MEDS: Potassium Chloride 20 mEq SR Tablet PO SCH (09:54)
[2017-06-22] MEDS: Insulin GLARgine 100 Unit/mL Syringe SUBQ SCH ×2 (09:54→19:55)
[2017-06-22] MEDS: cefTRIAXone Inj 2,000 MG in Dextrose 5% Minibag Plus 50 ML IV SCH (09:55)
--- NOTE | 2017-06-22 12:26 | PCM.DIMED ---
Discharge Instructions Date of Service Jun 22, 2017 Dates of Hospitalization Jun 18, 2017 at 14:10 Discharge Diagnosis Discharge Diagnosis Acute on chronic respiratory failure with hypoxia and hypercapnia Hyponatremia, acute resolved Toxic encephalopathy with resultant agitation, acute, present on admission Urinary tract infection, acute, present on admission, secondary to eat pansensitive Escherichia coli Hypothyroidism, chronic Type II diabetes, chronic Diet Discharge Diet: Heart Healthy, Diabetic Activity Discharge Activity: Other (progresses tolerated with physical therapy at [facility]) Patient Instructions Follow-up with PCP in: 1 week (, sooner if problems) Paula Jackosn MD Jun 22, 2017 12:26
[2017-06-22] MEDS ORDERED: IPRA3AMP NEB (12:33)
[2017-06-22] MEDS ORDERED: OXYC5CAP4 PO (12:33)
[2017-06-22] MEDS ORDERED: ALBU2.5V4 NEB (12:33)
[2017-06-22] MEDS ORDERED: CEPH-512 PO (12:33)
[2017-06-22] MEDS ORDERED: [UNRECOGNIZED DRUG - CODE] MC (12:34)
[2017-06-22] MEDS ORDERED: NEBU-154 MC (12:35)
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
--- NOTE | 2017-06-22 15:42 | NUR ---
Social Work Note: Continued Discharge Planning Data& Assessment: Per MD in multidisciplinary rounds, pt is getting closer to being medically ready for discharge. MD had placed Discharge orders however, PT evaluation had not been completed yet per Beth from [facility] and Maude from [place] health insurance request for either insurance authorization or denial for SNF stay. Pt had been a LTC patient at [facility] but an authorization must be pursued. Per Beth from [facility], she is willing to accept pt back regardless of insurance authorization or denial but they would like to attempt the authorization either way. PT order has been placed. PRIMARY SUBSTANCE ABUSE COUNSELOR to continue to follow. Plan: Anticipated discharge back to [facility] as a rehab pt or LTC patient pending [place] insurance authorization or denial. PRIMARY SUBSTANCE ABUSE COUNSELOR to follow up with [facility] after PT recommendations have been made and [place] Authorization has been started. PRIMARY SUBSTANCE ABUSE COUNSELOR to continue to follow. VERONIQUE Arnold Addendum: 06/22/17 at 1551 by ZEYAD FINNEY Correction on reference to "[facility]" in the above note. "[facility]" is now called [facility]. They are the same facility, but has recently had a change in the facility's name. VERONIQUE Arnold
[2017-06-22] MEDS ORDERED: .Epic Conversion Completed XX PRN (17:35)
--- NOTE | 2017-06-22 17:42 | NUR ---
TODD Signed VERONIQUE Arnold
--- NOTE | 2017-06-22 18:33 | NUR ---
Tele/IV Ok to d/c tele and leave IV access out, per MD.
--- NOTE | 2017-06-22 21:58 | NUR ---
BS Pt's BS 130. Pt declined HS Lantus due to recent episodes of hypoglycemia. Will continue to monitor.
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
== END 2017-06-23 01:22 | disposition admitted as inpatient to this hospital (09) | DRG 189 ==
LOC: SED 10:50 → EDBD 10:50 → PCC 14:10
PROVIDERS: ADMIT Specialist; ATTEND Specialist
DX: J96.21 Acute and chronic respiratory failure with hypoxia (principal); G92 Toxic encephalopathy; E87.2 Acidosis; E87.1 Hypo-osmolality and hyponatremia; J44.1 Chronic obstructive pulmonary disease with (acute) exacerbation; J44.0 Chronic obstructive pulmonary disease with (acute) lower respiratory infection; N39.0 Urinary tract infection, site not specified; J20.9 Acute bronchitis, unspecified; B96.89 Other specified bacterial agents as the cause of diseases classified elsewhere; T38.0X5A Adverse effect of glucocorticoids and synthetic analogues, initial encounter